=== PATIENT | male | born 1955 | race Caucasian/White ===

== ENCOUNTER 2017-09-27 09:15 | Emergency (ER) | payer MEDICARE, OTHER ==
[~2017-09-27] VITALS: Ht 172.7 cm; Wt 73.0 kg
[2017-09-27] MEDS ORDERED: PROMETHAZINE 25 MG/ML, 1ML ONE (09:26)
[2017-09-27] MEDS ORDERED: THIAMINE 100MG TABLET PO ONE (09:30)
[2017-09-27] MEDS ORDERED: PROMETHAZINE 25 MG/ML, 1ML IM ONE (09:30)
[2017-09-27 09:39] VITALS: BP 164/71
[2017-09-27] MEDS ORDERED: OXYC20TA2 PO (09:43)
[2017-09-27] MEDS ORDERED: THIAMINE 100MG TABLET ONE (09:55)
[2017-09-27 09:57] LABS: ALBUMIN 3.3 g/dL (3.4-5.0); ANION GAP 7 mmol/L (5-15); CALCIUM 8.8 mg/dL (8.5-10.1); CHLORIDE 110 mmol/L (98-107)
[2017-09-27 10:00] LABS: ALANINE AMINOTRANSFERASE 32 U/L (12-78); ALKALINE PHOSPHATASE 113 U/L (45-117); BILIRUBIN,TOTAL 1.6 mg/dL (0.2-1.0); CREATININE 0.76 mg/dL (0.7-1.3); TOTAL PROTEIN 7.3 g/dL (6.4-8.2)
[2017-09-27 10:17] LABS: BASOPHILS # (AUTO) 0.02 x10^3/uL (0-0.1); BASOPHILS % (AUTO) 0 % (0-1); EOSINOPHILS # (AUTO) 0.01 x10^3/uL (0-0.4); EOSINOPHILS % (AUTO) 0 % (1-7); LYMPHOCYTES # (AUTO) 1.07 x10^3/uL (1-3.4); LYMPHOCYTES % (AUTO) 22 % (22-44); MD NO; MEAN CORPUSCULAR HEMOGLOBIN 32.4 pg (27.5-34.5); MEAN CORPUSCULAR HGB CONC 34.7 g/dL (33.2-36.2); MEAN CORPUSCULAR VOLUME 93.6 fL (81-97); MONOCYTES # (AUTO) 0.21 x10^3/uL (0.2-0.8); MONOCYTES % (AUTO) 4 % (2-9); NEUTROPHILS % (AUTO) 74 % (42-75); PLATELET COUNT 112 x10^3/uL (130-400); RED BLOOD COUNT 4.72 x10^6/uL (4.38-5.82); RED CELL DISTRIBUTION WIDTH 12.4 % (9.4-14.8)
[2017-09-27] MEDS ORDERED: ONDANSETRON ODT 4 MG ONE (10:25)
[2017-09-27] MEDS ORDERED: ONDANSETRON ODT 4 MG PO ONE (10:30)
== END 2017-09-27 12:35 | disposition home or self-care (01) ==
LOC: ED 11:36
DX: F11.10 Opioid abuse, uncomplicated (principal); F13.220 Sedative, hypnotic or anxiolytic dependence with intoxication, uncomplicated; F17.200 Nicotine dependence, unspecified, uncomplicated
CPT/HCPCS: 36415; 80053; 85025; 93005; 96372; 99285; J2550; Q0162